=== PATIENT | female | born 1955 | race Caucasian/White ===

== ENCOUNTER 2017-01-02 15:00 | Emergency (ER) | payer BC, MEDICARE ==
--- NOTE | 2017-01-02 15:19 | ER Document Report ---
ED Medical Screen (RME) - General Stated Complaint: HEAD INJURY Notes: head injury on 2016 -LOC, -emesis chronic headaches located left frontal no vision changes I have greeted and performed a rapid initial assessment of this patient. A comprehensive ED assessment and evaluation of the patient, analysis of test results and completion of the medical decision making process will be conducted by additional ED providers. TRAVEL OUTSIDE OF THE [place] IN LAST 30 DAYS: No - Related Data Allergies/Adverse Reactions: No Known Allergies Allergy (Unverified 01/02/17 15:14) Physical Exam - Vital signs Vitals: Temp Pulse Resp BP Pulse Ox 97.8 F 92 18 149/77 H 95 01/02/17 15:09 01/02/17 15:09 01/02/17 15:09 01/02/17 15:09 01/02/17 15:09 Course - Vital Signs Vital signs: Temp Pulse Resp BP Pulse Ox 97.8 F 92 18 149/77 H 95 01/02/17 15:09 01/02/17 15:09 01/02/17 15:09 01/02/17 15:09 01/02/17 15:09
--- NOTE | 2017-01-02 20:01 | ER Document Report ---
ED Head/Face/Scalp Injury - General Chief Complaint: Head Injury Stated Complaint: HEAD INJURY Mode of Arrival: Ambulatory Information source: Patient Notes: 61-year-old female presents to the emergency department c/o intermittently persistent headaches with associated photophobia over the last 3 weeks. Pt reports had mechanical fall approximately 3 weeks ago during which she fell backwards from standing and struck the back of her head on the ground. Patient initially states she is not as consciousness however upon further questioning reports her daughter who witnessed the fall told her her eyes rolled in the back of her head and she was not fully responsive for a few seconds. Patient reports had nausea and vomiting shortly after fall. Reports over the last 2 weeks has not had any nausea or vomiting or neurological deficits however reports intermittently persistent headaches and light sensitivity. Also reports generalized posterior neck pain since fall. Denies fever or recent illness, extremity weakness/numbness/tingling, chest pain or shortness of breath , saddle numbness, or incontinence. TRAVEL OUTSIDE OF THE [place] IN LAST 30 DAYS: No - Related Data Allergies/Adverse Reactions: No Known Allergies Allergy (Unverified 01/02/17 15:14) Home Medications: Current Home Medications Amlodipine Besylate [Amlodipine Besylate] 10 mg PO DAILY 01/02/17 [History] Aspirin [Aspirin EC] 81 mg PO DAILY PRN 01/02/17 [History] Ergocalciferol (Vitamin D2) [Vitamin D] 400 unit PO DAILY 01/02/17 [History] Valsartan/Hydrochlorothiazide [Valsartan-Hctz 320-12.5 mg Tab] 1 each PO DAILY 01/02/17 [History] Past Medical History - General Information source: Patient - Social History Smoking Status: Never Smoker Chew tobacco use (# tins/day): No Frequency of alcohol use: Rare Drug Abuse: None Lives with: Family Family History: Reviewed & Not Pertinent Patient has suicidal ideation: No Patient has homicidal ideation: No - Past Medical History Cardiac Medical History: Reports: Hx Hypertension Renal/ Medical History: Denies: Hx Peritoneal Dialysis Past Surgical History: Reports: Hx Tubal Ligation - Immunizations Hx Diphtheria, Pertussis, Tetanus Vaccination: Yes Review of Systems - Review of Systems Constitutional: No symptoms reported EENT: No symptoms reported Cardiovascular: No symptoms reported Respiratory: No symptoms reported Gastrointestinal: No symptoms reported Genitourinary: No symptoms reported Female Genitourinary: No symptoms reported Musculoskeletal: See HPI Skin: No symptoms reported Hematologic/Lymphatic: No symptoms reported Neurological/Psychological: See HPI -: Yes All other systems reviewed and negative Physical Exam - Vital signs Vitals: Temp Pulse Resp BP Pulse Ox 97.8 F 92 18 149/77 H 95 01/02/17 15:09 01/02/17 15:09 01/02/17 15:09 01/02/17 15:09 01/02/17 15:09 Interpretation: Normal - General General appearance: Appears well, Alert In distress: None - HEENT Head: Normocephalic, Atraumatic Eyes: Normal Conjunctiva: Normal Extraocular movements intact: Yes Eyelashes: Normal Pupils: PERRL Ears: Normal External canal: Normal Tympanic membrane: Normal Sinus: Normal Nasal: Normal Mouth/Lips: Normal Mucous membranes: Normal, Moist Pharynx: Normal. No: Blood in hypopharynx, Erythema, Exudate, Peritonsillar abscess, Post nasal drainage, Retropharyngeal abscess, Tonsillar hypertrophy, Uvular edema, Potential airway comprom., Other Neck: Normal. No: Anterior cervical chain, Posterior cervical chain, Brudzinski , Carotid bruit, Kernig's, Lymphadenopathy, Meningismus, Neck mass, Shotty nodes , Subcutaneous emphysema, Supple, Thyroid nodule, Thyromegally, Other - Respiratory Respiratory status: No respiratory distress Chest status: Nontender Breath sounds: Normal Chest palpation: Normal - Cardiovascular Rhythm: Regular Heart sounds: Normal auscultation Murmur: No Pulses: Normal: Radial Normal capillary refill: Yes - Abdominal Inspection: Normal Distension: No distension Bowel sounds: Normal Tenderness: Nontender Organomegaly: No organomegaly - Back Back: Normal, Nontender - Extremities General upper extremity: Normal inspection, Nontender, Normal color, Normal ROM , Normal temperature General lower extremity: Normal inspection, Nontender, Normal color, Normal ROM , Normal temperature, Normal weight bearing. No: Atul's sign - Neurological Neuro grossly intact: Yes Cognition: Normal Orientation: AAOx4 [place] Coma Scale Eye Opening: Spontaneous [place] Coma Scale Verbal: Oriented [place] Coma Scale Motor: Obeys Commands [place] Coma Scale Total: 15 Speech: Normal Cranial nerves: Normal Cerebellar coordination: Normal Motor strength normal: LUE, RUE, LLE, RLE Additional motor exam normals: Equal hog cooler Sensory: Normal - Psychological Associated symptoms: Normal affect, Normal mood - Skin Skin Temperature: Warm Skin Moisture: Dry Skin Color: Normal Course - Re-evaluation Re-evalutation: 01/02/17 20:02 Patient hemodynamically stable, in no distress, afebrile, and neurologically intact. CT scan of head and neck with no acute or significant findings. Patient appears stable for discharge and agrees with home care, follow-up with PCP, and ED return precautions. - Vital Signs Vital signs: Temp Pulse Resp BP Pulse Ox 97.8 F 86 20 126/85 H 96 01/02/17 20:29 01/02/17 20:29 01/02/17 20:29 01/02/17 20:29 01/02/17 20:29 Discharge - Discharge Clinical Impression: Post concussion syndrome Cervical strain Qualifiers: Encounter type: initial encounter Qualified Code(s): S16.1XXA - Strain of muscle, fascia and tendon at neck level, initial encounter Condition: Stable Disposition: HOME, SELF-CARE Instructions: Post-Concussion Syndrome ([facility]), Acetaminophen, Neck Injury ( Cervical Strain) ([facility]), Warm Packs ([facility]), Ice Packs ([facility]) Additional Instructions: Follow-up with your primary care provider this week. Return to the Emergency Department for any worsening symptoms or concerns. Forms: Elevated Blood Pressure Referrals: TAO LEVY MD [Primary Care Provider] - Follow up tomorrow
[2017-01-02 20:30] VITALS: BP 126/85
== END 2017-01-02 20:26 | disposition home or self-care (01) ==
LOC: ER 15:00
DX: S16.1XXA Strain of muscle, fascia and tendon at neck level, initial encounter (principal); F07.81 Postconcussional syndrome; R51 Headache; H53.149 Visual discomfort, unspecified; Z79.899 Other long term (current) drug therapy; W19.XXXA Unspecified fall, initial encounter
CPT/HCPCS: 70450; 72125; 99284

== ENCOUNTER → 2017-02-04 | Outpatient (CLI) | payer BC, MEDICARE | LOC: WI 08:53 | PROVIDERS: ATTEND Internal Medicine Geriatric Medicine | DX: Z12.31 Encounter for screening mammogram for malignant neoplasm of breast (principal) | CPT/HCPCS: 77067; G0202 ==

== ENCOUNTER 2017-04-19 06:41 | Day surgery (SDC) | payer BC ==
[~2017-04-19 06:41] MED LIST: DIPHENHYDRAMINE HCL 50 MG/ML VIAL ONE; FENTANYL CITRATE INJ/PF 100 MCG/2 ML AMPUL ONE; LIDOCAINE 2% INJ-PF (20 MG/ML) 10 ML AMPUL ONE; MIDAZOLAM 2 MG/2 ML INJ ONE; PROPOFOL INJ 200 MG/20 ML VIAL IV ONE; SUCCINYLCHOLINE CHLORIDE INJ 200 MG/10 ML VIAL ONE
[2017-04-19] MEDS ORDERED: TETRACAINE HCL 0.5% OPH SOLN 2 ML ONE (07:09)
[2017-04-19] MEDS ORDERED: NEO/POLYMYX B SULF/DEXAMETH OPH OINTMENT 3.5 GM ONE (07:09)
[2017-04-19] MEDS ORDERED: POVIDONE-IODINE 5% OPH PREP SOLN 30 ML ONE (07:09)
[2017-04-19] MEDS ORDERED: LIDOCAINE 2%/EPINEPHRINE INJ 20 ML VIAL ONE (07:14)
[2017-04-19] MEDS ORDERED: BUPIVACAINE HCL 0.75% INJ/PF (7.5 MG/1 ML) 10 ML SDV ONE (07:14)
[2017-04-19] MEDS ORDERED: THROMBIN (BOVINE) TOPICAL 5000 UNIT VIAL ONE (07:14)
--- NOTE | 2017-04-22 12:09 | [facility] OPERATIVE REPORT E ---
[facility] Operative Report NAME: ANDRES MARTINEZ AGE: 61Y DATE OF SURGERY: 04/19/2017 ROOM: PREOPERATIVE DIAGNOSIS: Dermatochalasis of the bilateral upper lid. POSTOPERATIVE DIAGNOSIS: Dermatochalasis of the bilateral upper lid. PROCEDURE: Bilateral upper lid blepharoplasty of both eyes. SURGEON: PIPO MAXWELL M.D. ANESTHESIA: Topical with 2% lidocaine injected locally with epinephrine. BLOOD LOSS: Less than 5 mL. COMPLICATIONS: None. DESCRIPTION OF OPERATIVE REPORT: After obtaining appropriate informed consent, the lids were prepped and draped in sterile fashion. A marking pen was used to outline the appropriate amount of upper lid eye skin to be removed following along the upper eyelid crease at about 6 mm and outlining the appropriate amount of skin to remove without causing any lid lag. Following this, the lids were injected with 2% lidocaine with epinephrine. The amount of skin was then excised using a 15 blade followed by blepharoplasty scissors and 0.12 forceps. Following this, cautery was achieved with hemostasis. A strip of orbicularis muscle was then removed. Thrombin-soaked sponges were placed on the lid sites and this process was repeated in both upper lids. Following this, a 6-0 silk was used to make 3 simple interrupted sutures passed through orbicularis skin to reform the lid crease. The 8-0 nylon was used to close the skin then in a running fashion. The wound seemed to be well opposed with the appropriate amount of skin removed. This was repeated on both sides. Following this, Maxitrol ointment was placed on the lids and the patient was brought back to recovery with she tolerated the procedure well. DICTATING PHYSICIAN: PIPO MAXWELL M.D. [id number] PHY#: [id number] ID: [id number] JOB#: [id number] ACCT: [id number] cc:PIPO MAXWELL M.D. >
--- NOTE | 2017-04-22 12:14 | [facility] DISCHARGE SUMMARY E ---
[facility] Discharge Summary NAME: ANDRES MARTINEZ AGE: 61Y ADMITTED: 04/19/2017 DISCHARGED: 04/19/2017 HOSPITAL COURSE: This is a 61-year-old female who underwent bilateral upper lid blepharoplasty. Diagnosis is dermatochalasis of both upper lids. This procedure was done because she had very heavy lids, had to raise her eyebrows to see things. She felt like she was looking through her eyelashes. This was also confirmed on visual field as well as lid measurements. The patient is to be on a regular diet, no bending at the waist, no heavy lifting, being asked to use her Maxitrol ointment b.i.d. and use ice 15 minutes of every hour for the first 6 hours followed by 4 times a day. I will see her back in 1 week to remove the sutures. The patient is to call me if she has any concerns. DICTATING PHYSICIAN: PIPO MAXWELL M.D. [id number] PHY#: [id number] ID: [id number] JOB#: [id number] ACCT: [id number] cc:PIPO MAXWELL M.D. >
== END 2017-04-19 09:47 | disposition home or self-care (01) ==
LOC: SC 06:41
PROVIDERS: ATTEND Internal Medicine
PROC: 080N0ZZ Alteration of Right Upper Eyelid, Open Approach (ICD-10-PCS; 2017-04-19)
PROC: 080P0ZZ Alteration of Left Upper Eyelid, Open Approach (ICD-10-PCS; principal; 2017-04-19 07:30)
DX: H02.831 Dermatochalasis of right upper eyelid (principal); H02.834 Dermatochalasis of left upper eyelid; H53.40 Unspecified visual field defects; H04.123 Dry eye syndrome of bilateral lacrimal glands; H25.813 Combined forms of age-related cataract, bilateral; I10 Essential (primary) hypertension; Z88.5 Allergy status to narcotic agent; Z79.82 Long term (current) use of aspirin; Z79.899 Other long term (current) drug therapy
CPT/HCPCS: 15822; J2250; J3490 ×6; J1200; J3010; J0330; J2704; 103

== ENCOUNTER → 2018-11-17 | Outpatient (CLI) | payer BC ==
--- NOTE | 2018-11-17 14:26 | WOMENS IMAGING REPORT ---
EXAM DESCRIPTION: BILAT SCREENING MAMMO W/CAD COMPLETED DATE/TIME: 11/17/2018 2:04 pm REASON FOR STUDY: Z12.31 BILATERAL SCREENING MAMMOGRAM Z12.31 ENCNTR SCREEN MAMMOGRAM FOR MALIGNANT NEOPLASM OF MATEUSZ COMPARISON: 2015, 2016 TECHNIQUE: Standard craniocaudal and mediolateral oblique views of each breast recorded using Splash.FMa l acquisition. LIMITATIONS: None. FINDINGS: Findings present which are benign by mammographic criteria. No suspicious masses, calcifi cations or architectural distortion. Pertinent benign findings: Benign breast parenchymal calcifications and arterial vascular calcificati ons bilaterally. Read with the assistance of CAD. .[facility] - R2 Cenova Version 1.3 .[facility] - R2 Cenova Version 1.3 .[facility] - R2 Cenova Version 2.[address] - R2 Cenova Version 2.4 .[facility] - R2 Traffic Or System Dispatcher Version 9.2 Benign mammographic findings may include one or more of the following: Smooth masses, popcorn/rim/co arse calcifications, asymmetries, post-procedure changes, and lesions with long-standing stability. IMPRESSION: BENIGN MAMMOGRAPHIC FINDINGS. BIRADS 2 BREAST DENSITY: b. There are scattered areas of fibroglandular density. BIRAD: 2 BENIGN FINDING(S) RECOMMENDATION: ROUTINE SCREENING COMMENT: The patient has been notified of the results by letter per [place] requirements. Additional no tification policies are in place for contacting patient with suspicious or incomplete findings. Quality ID #[id number]: The [employer] recommends an annual screening mammogram for women aged 40 years or over. This facility utilizes a reminder system to ensure that all patients receive reminder letters, and/or direct phone calls for appointments. This includes reminders for routine scr eening mammograms, diagnostic mammograms, or other Breast Imaging Interventions when appropriate. Th is patient will be placed in the appropriate reminder system. The [employer] (ACR) has developed recommendations for screening MRI of the breast s in certain patient populations, to be used in conjunction with mammography. Breast MRI surveillanc e may be appropriate for women with more than 20% lifetime risk of developing breast cancer as deter mined by genetic testing, significant family history of the disease, or history of mantle radiation f or Hodgkins Disease. ACR Practice Guidelines 2008. TECHNICAL DOCUMENTATION: FINDING NUMBER: (1) ASSESSMENT: (1) JOB ID: [id number] [employer]- All Rights Reserved Reading location - IP/workstation name: [email or web address]
== END ==
LOC: WI 13:48
PROVIDERS: ATTEND Internal Medicine Geriatric Medicine
DX: Z12.31 Encounter for screening mammogram for malignant neoplasm of breast (principal)
CPT/HCPCS: 77067

== ENCOUNTER → 2019-12-08 | Outpatient (CLI) | payer BC, MEDICARE, OTHER ==
--- NOTE | 2019-12-08 10:53 | WOMENS IMAGING REPORT ---
EXAM DESCRIPTION: 3D SCREENING MAMMO BILAT COMPLETED DATE/TIME: 12/08/2019 10:19 am REASON FOR STUDY: Z12.31 ENCOUNTER FOR SCREENING MAMMOGRAM FOR MALIGNANT NEOPLASM OF BREAST Z12.31 ENCNTR SCREEN MAMMOGRAM FOR MALIGNANT NEOPLASM OF MATEUSZ COMPARISON: [id number] EXAM PARAMETERS: Views: Standard craniocaudal and mediolateral oblique views of each breast recorded using digital acquisition and breast tomosynthesis. Read with the assistance of CAD. .[facility] - R2 Mechanic Version 9.2 LIMITATIONS: None. FINDINGS: No suspicious masses, suspicious calcifications or architectural distortion. No areas of c oncern. IMPRESSION: NEGATIVE MAMMOGRAM. BIRADS 1. BREAST DENSITY: b. There are scattered areas of fibroglandular density. BIRAD: ASSESSMENT: 1 NEGATIVE RECOMMENDATION: ROUTINE SCREENING COMMENT: The patient has been notified of the results by letter per MQSA requirements. Additional no tification policies are in place for contacting patient with suspicious or incomplete findings. Quality ID #[id number]: The [employer] recommends an annual screening mammogram for women aged 40 years or over. This facility utilizes a reminder system to ensure that all patients receive reminder letters, and/or direct phone calls for appointments. This includes reminders for routine scr eening mammograms, diagnostic mammograms, or other Breast Imaging Interventions when appropriate. Th is patient will be placed in the appropriate reminder system. TECHNICAL DOCUMENTATION: FINDING NUMBER: (1) ASSESSMENT: (1) JOB ID: [id number] [employer]- All Rights Reserved Reading location - IP/workstation name: [email or web address]
== END ==
LOC: WI 09:51
PROVIDERS: ATTEND Internal Medicine Geriatric Medicine
DX: Z12.31 Encounter for screening mammogram for malignant neoplasm of breast (principal)
CPT/HCPCS: 77063; 77067